=== PATIENT | male | born 1950 | race Caucasian/White ===

== ENCOUNTER 2019-07-17 10:49 | Emergency (ER) | payer OTHER ==
[2019-07-17] MEDS ORDERED: NA CHLORIDE 0.9% 1,000 ML ONE (10:58)
[2019-07-17] MEDS ORDERED: ONDANSETRON 4 MG/2 ML VIAL ONE (10:58)
[2019-07-17 11:16] LABS: Absolute Lymphocytes (CBC) 0.6 K/uL (0.7-4.9); Basophils % 0.1 % (0-1.3); Hematocrit 46.6 % (39.6-49.0); Lymphocytes % 5.7 % (15.3-44.8); RBC Red Blood Cell Count 5.22 M/uL (4.33-5.43)
[2019-07-17 11:28] LABS: Albumin 4.3 g/dL (3.4-5.0); Bilirubin Direct 0.2 mg/dL (0-0.2); Bilirubin Total 0.3 mg/dL (0.2-1.0); Potassium 4.3 mmol/L (3.5-5.1); Protein, Total 8.9 g/dL (6.4-8.2)
--- NOTE | 2019-07-17 11:33 | RAD REPORT ---
EXAM DESCRIPTION: CT - Abdomen Pelvis Wo Contrast - 07/17/2019 11:18 am CLINICAL HISTORY: vomiting/diarrhea Abdominal pain COMPARISON: No comparisons TECHNIQUE: Axial [address] imaging of the abdomen and pelvis was performed without IV contrast. No IV contrast was given because of allergy, abnormal renal function, patient refusal or physician re quest. No oral contrast given. All CT scans are performed using dose optimization technique as appropriate and may include automated exposure control or mA/KV adjustment according to patient size. FINDINGS: No suspicious findings in the lung bases. The liver, spleen and pancreas show no suspicious findings on non-contrast imaging. Gallbladder and b iliary tree are also without suspicious finding. No hydronephrosis or suspicious renal mass. No significant adrenal finding. Isodense renal masses an d pyelonephritis cannot be excluded in the absence of IV contrast. Urinary bladder is contracted. No dilated large or small bowel. Multiple fluid filled large and small bowel loops are present. Sever al proximal small bowel loops are prominent. No bowel wall thickening or mass. No free air, free flu id or inflammatory stranding. No hernia, mass or bulky lymphadenopathy. Disc and bone degenerative changes are present. No acute bone finding. IMPRESSION: Nonspecific ileus or gastroenteritis pattern. No bowel obstruction, free air or surgical ly emergent finding. Full assessment is limited is the absence of IV contrast.
[2019-07-17 12:01] LABS: Blood Morphology Comment NOT SEEN (NOT SEEN); Platelet Estimate ADEQ; Urine White Blood Cell Casts OK
[2019-07-17] MEDS ORDERED: DIPHENOX/ATROP SULF 1 TAB PO ONE (12:03)
--- NOTE | 2019-07-17 13:16 | ER ---
Nurse's Notes [facility] Name: Francisco Acosta Age: 69 yrs Sex: Male : 1950 Arrival Date: 07/17/2019 Time: 10:50 Bed 13 Private MD: ESVIN MCALLISTER Diagnosis: Vomiting;Diarrhea, unspecified;Viral enteritis;Dehydration Presentation: 07/17 10:51 Presenting complaint: EMS states: N/V/D that began this morning. Transition of care: sg patient was not received from another setting of care. Onset of symptoms was July 17, 2019. Risk Assessment: Do you want to hurt yourself or someone else? Patient reports no desire to harm self or others. Initial Sepsis Screen: Does the patient meet any 2 criteria? No. Patient's initial sepsis screen is negative. Does the patient have a suspected source of infection? No. Patient's initial sepsis screen is negative. Care prior to arrival: None. 10:51 Method Of Arrival: EMS: [facility] 10:51 Acuity: GIRMA 3 sg Historical: - Allergies: 11:09 iodine; sg - Home Meds: 11:20 empagliflozin oral oral 1 tab once daily [Active]; gabapentin 300 mg oral cap 1 cap 3 sg times per day [Active]; terazosin hcl [Active]; levothyroxine 25 mcg tab 1 tab once daily [Active]; ferrous gluconate 324 mg (36 mg iron) Oral tab for Iron Deficiency Anemia [Active]; cholecalciferol (vitamin D3) 400 unit oral cap [Active]; sertraline 100 mg oral tab 1 tab once daily [Active]; omeprazole 20 mg Oral TbEC twice a day [Active]; aspirin 81 mg Oral chew 1 tab once daily [Active]; Lisinopril HCTZ HCTZ 25/Lisinopril 20 mg daily [Active]; simvastatin 20 mg Oral tab 1 tab once daily [Active]; doxepin 10 mg Oral cap 2 caps nightly [Active]; Lantus 100 unit/mL Sub-Q soln [Active]; Novolog 100 unit/mL Sub-Q soln [Active]; 11:21 Victoza 2-Mann subcutaneous subcutaneous [Active]; Jardiance oral oral [Active]; sg - PMHx: 11:20 Hypothyroidism; sg 11:23 Diabetes - NIDDM; Anxiety; Anemia; GERD; Depression; sg - Immunization history:: Adult Immunizations up to date. - Family history:: not pertinent. - Social history:: Smoking status: Patient/guardian denies using tobacco. - Ebola Screening: : No symptoms or risks identified at this time. - Hospitalizations: : No recent hospitalization is reported. Screenin:12 Abuse screen: Denies threats or abuse. Denies injuries from another. Nutritional mg2 screening: No deficits noted. Tuberculosis screening: No symptoms or risk factors identified. Fall Risk IV access (20 points). Assessment: 12:10 General: Appears in no apparent distress. comfortable, Behavior is calm, cooperative. mg2 Pain: Denies pain. Neuro: Level of Consciousness is awake, alert, obeys commands, Oriented to person, place, time, situation. Cardiovascular: Capillary refill < 3 seconds Patient's skin is warm and dry. Respiratory: Airway is patent Respiratory effort is even, unlabored, Respiratory pattern is regular, symmetrical. GI: Reports diarrhea, nausea, vomiting. : No signs and/or symptoms were reported regarding the genitourinary system. EENT: No signs and/or symptoms were reported regarding the EENT system. Derm: Skin is intact, is healthy with good turgor, Skin is pink, warm \T\ dry. normal. Musculoskeletal: Circulation, motion, and sensation intact. Capillary refill < 3 seconds. 13:20 Reassessment: Patient appears in no apparent distress at this time. Patient and/or mg2 family updated on plan of care and expected duration. Pain level reassessed. Patient is alert, oriented x 3, equal unlabored respirations, skin warm/dry/pink. 13:58 Reassessment: Patient states feeling better. Patient states symptoms have improved. mg2 Vital Signs: 11:28 BP 98 / 63; Pulse 93; Resp 22; Temp 97.8(O); Pulse Ox 96% on R/A; mh5 12:09 BP 111 / 75; Pulse 89; Resp 18; Pulse Ox 97% on 3 lpm NC; mg2 13:58 BP 118 / 78; Pulse 80; Resp 18; Temp 98; Pulse Ox 100% on R/A; Pain 0/10; mg2 ED Course: 10:50 Patient arrived in ED. rn 10:50 Ralph Meyers MD is Attending Physician. rn 10:51 Melo Schmidt, RN is Primary Nurse. sg 10:52 Triage completed. sg 11:09 Initial lab(s) drawn, by me, sent to lab. Maintain EMS IV. Good blood return noted. sg Site clean \T\ dry. 11:17 CT Abd/Pelvis - Without Contrast In Process Unspecified. EDMS 11:18 CT completed. Patient tolerated procedure well. Patient moved back from CT. bq 11:23 Arm band placed on. sg 11:24 VA, VA is Private Physician. sg 11:28 Patient has correct armband on for positive identification. Placed in gown. Bed in low mh5 position. Call light in reach. Side rails up X2. Adult w/ patient. Warm blanket given. night monitor on. Pulse ox on. NIBP on. 12:00 Report given to Autumn CARL. sg 12:12 No provider procedures requiring assistance completed. mg2 13:41 Jorge Daniel, RN is Primary Nurse. mg2 13:58 IV discontinued, intact, bleeding controlled, No redness/swelling at site. Pressure mg2 dressing applied. Administered Medications: 11:10 Drug: Zofran 4 mg Route: IVP; Site: right antecubital; sg 13:57 Follow up: Response: No adverse reaction; Marked relief of symptoms mg2 11:24 Drug: NS 0.9% 1000 ml Route: IV; Rate: 1000 ml; Site: right antecubital; sg 13:57 Follow up: Response: No adverse reaction; IV Status: Completed infusion; IV Intake: mg2 1000ml 12:06 Drug: LoMOTIL 2 tabs Route: PO; mg2 13:57 Follow up: Response: No adverse reaction; Marked relief of symptoms mg2 Intake: 13:57 IV: 1000ml; Total: 1000ml. mg2 Outcome: 13:15 Discharge ordered by . rn 13:58 Discharged to home via wheelchair. mg2 13:58 Condition: stable 13:58 Discharge instructions given to patient, Instructed on discharge instructions, follow up and referral plans. medication usage, Demonstrated understanding of instructions, follow-up care, medications, Prescriptions given X 1. 13:59 Patient left the ED. mg2 Signatures: Dispatcher [employer] EDMS Melo Schmidt, RN RN Lisette Whyte Ralph Meyers MD MD rn [place] [id number] Jorge Daniel RN RN mg2
--- NOTE | 2019-07-17 13:16 | EDPHYS ---
Physician Documentation [facility] Name: Francisco Acosta Age: 69 yrs Sex: Male : 1950 Arrival Date: 07/17/2019 Time: 10:50 Bed 13 Private MD: ESVIN, DE ED Physician Ralph Meyers HPI: 07/17 10:52 This 69 yrs old Male presents to ER via Unassigned with complaints of rn nausea/vomiting/diarrhea. 10:52 The patient presents to the emergency department with nausea, vomiting, diarrhea. rn Onset: The symptoms/episode began/occurred this morning. Possible causes: unknown. The symptoms are aggravated by nothing. The symptoms are alleviated by nothing. Severity of symptoms: At their worst the symptoms were moderate in the emergency department the symptoms have improved. The patient has not experienced similar symptoms in the past. Reports this AM began with frequent vomiting and diarrhea, feels generalized weakness, no blood in stool or emesis, no fever. Not able to keep gatorade down. Initial BP was 80s systolic, now 110s after 500cc NS by EMS. Still some nausea. Denies abd pain. Historical: - Allergies: 11:09 iodine; sg - Home Meds: 11:20 empagliflozin oral oral 1 tab once daily [Active]; gabapentin 300 mg oral cap 1 cap 3 sg times per day [Active]; terazosin hcl [Active]; levothyroxine 25 mcg tab 1 tab once daily [Active]; ferrous gluconate 324 mg (36 mg iron) Oral tab for Iron Deficiency Anemia [Active]; cholecalciferol (vitamin D3) 400 unit oral cap [Active]; sertraline 100 mg oral tab 1 tab once daily [Active]; omeprazole 20 mg Oral TbEC twice a day [Active]; aspirin 81 mg Oral chew 1 tab once daily [Active]; Lisinopril HCTZ HCTZ 25/Lisinopril 20 mg daily [Active]; simvastatin 20 mg Oral tab 1 tab once daily [Active]; doxepin 10 mg Oral cap 2 caps nightly [Active]; Lantus 100 unit/mL Sub-Q soln [Active]; Novolog 100 unit/mL Sub-Q soln [Active]; 11:21 Victoza 2-Mann subcutaneous subcutaneous [Active]; Jardiance oral oral [Active]; sg - PMHx: 11:20 Hypothyroidism; sg 11:23 Diabetes - NIDDM; Anxiety; Anemia; GERD; Depression; sg - Immunization history:: Adult Immunizations up to date. - Family history:: not pertinent. - Social history:: Smoking status: Patient/guardian denies using tobacco. - Ebola Screening: : No symptoms or risks identified at this time. - Hospitalizations: : No recent hospitalization is reported. ROS: 10:52 Constitutional: Negative for fever, chills, and weight loss, Eyes: Negative for injury, rn pain, redness, and discharge, Neck: Negative for injury, pain, and swelling, Cardiovascular: Negative for chest pain, palpitations, and edema, Respiratory: Negative for shortness of breath, cough, wheezing, and pleuritic chest pain, Abdomen/GI: Negative for constipation MS/Extremity: Negative for injury and deformity, Skin: Negative for injury, rash, and discoloration, Neuro: Negative for headache, numbness, tingling, and seizure. Exam: 10:52 Constitutional: This is a well developed, well nourished patient who is awake, alert, rn and in no acute distress. Covered in emesis on shirt. Head/Face: Normocephalic, atraumatic. ENT: dry MM Cardiovascular: Regular rate and rhythm. No pulse deficits. Respiratory: No increased work of breathing, no retractions or nasal flaring. Speaking full sentences Abdomen/GI: soft, non-tender, non-distended MS/ Extremity: Pulses equal, no cyanosis. Neurovascular intact. Full, normal range of motion. Equal circumference. Neuro: Awake and alert, GCS 15, oriented to person, place, time, and situation. Cranial nerves II-XII grossly intact. Motor strength 5/5 in all extremities. Sensory grossly intact. Vital Signs: 11:28 BP 98 / 63; Pulse 93; Resp 22; Temp 97.8(O); Pulse Ox 96% on R/A; mh5 12:09 BP 111 / 75; Pulse 89; Resp 18; Pulse Ox 97% on 3 lpm NC; mg2 13:58 BP 118 / 78; Pulse 80; Resp 18; Temp 98; Pulse Ox 100% on R/A; Pain 0/10; mg2 MDM: 10:50 Patient medically screened. rn 11:58 ED course: Pt states known chronic kidney insufficiency, has had to modify medication rn because of it, feels much better with improvement of BP, now 114/60, better color, and states feels much better. CT abdomen shows gastroenteritis, which is consistent with symptoms and presentation. Normal wbc. Will dc home with prn zofran with return precautions. . 13:14 Differential diagnosis: appendicitis, diverticulitis, viral gastroenteritis, rn gastroenteritis. Data reviewed: vital signs, nurses notes, lab test result(s), radiologic studies, CT scan, and as a result, I will discharge patient. Counseling: I had a detailed discussion with the patient and/or guardian regarding: the historical points, exam findings, and any diagnostic results supporting the discharge/admit diagnosis, lab results, radiology results, the need for outpatient follow up, to return to the emergency department if symptoms worsen or persist or if there are any questions or concerns that arise at home. Response to treatment: the patient's symptoms have markedly improved after treatment, patient is well hydrated. and as a result, I will discharge patient. 07/17 10:52 Order name: Basic Metabolic Panel; Complete Time: 11:47 rn 07/17 10:52 Order name: CBC with Diff; Complete Time: 12:13 rn 07/17 10:52 Order name: Creatinine for Radiology; Complete Time: :47 rn 07/17 10:52 Order name: Hepatic Function; Complete Time: :47 rn 07/17 10:52 Order name: Lipase; Complete Time: 11:47 rn 07/17 12:01 Order name: CBC Smear Scan; Complete Time: 12:13 EDMS 07/17 10:52 Order name: IV Saline Lock; Complete Time: :54 rn 07/17 10:52 Order name: Labs collected and sent; Complete Time: :54 rn 07/17 10:52 Order name: CT Abd/Pelvis - Without Contrast; Complete Time: 11:47 rn Administered Medications: 11:10 Drug: Zofran 4 mg Route: IVP; Site: right antecubital; sg 13:57 Follow up: Response: No adverse reaction; Marked relief of symptoms mg2 11:24 Drug: NS 0.9% 1000 ml Route: IV; Rate: 1000 ml; Site: right antecubital; sg 13:57 Follow up: Response: No adverse reaction; IV Status: Completed infusion; IV Intake: mg2 1000ml 12:06 Drug: LoMOTIL 2 tabs Route: PO; mg2 13:57 Follow up: Response: No adverse reaction; Marked relief of symptoms mg2 Disposition: 07/17/19 13:15 Discharged to Home. Impression: Vomiting, Diarrhea, unspecified, Viral enteritis, Dehydration. - Condition is Stable. - Discharge Instructions: Dehydration, Adult, Diarrhea, Adult, Nausea and Vomiting, Adult, Viral Gastroenteritis, Adult. - Prescriptions for Zofran ODT 4 mg Oral tablet,disintegrating - place 1 tablet by TRANSLINGUAL route every 8 hours As needed; 20 tablet. - Medication Reconciliation Form, Thank You Letter, Antibiotic Education, Prescription Opioid Use form. - Follow up: Private Physician; When: As needed; Reason: Recheck today's complaints, Re-evaluation by your physician. - Problem is new. - Symptoms have improved. Signatures: Dispatcher [employer] EDMelo German RN RN sg Ralph Meyers MD MD rn Gardose, Michele, RN RN mg2 Corrections: (The following items were deleted from the chart) 13:59 13:15 07/17/2019 13:15 Discharged to Home. Impression: Vomiting; Diarrhea, unspecified; mg2 Viral enteritis; Dehydration. Condition is Stable. Forms are Medication Reconciliation Form, Thank You Letter, Antibiotic Education, Prescription Opioid Use. Follow up: Private Physician; When: As needed; Reason: Recheck today's complaints, Re-evaluation by your physician. Problem is new. Symptoms have improved. rn
[2019-07-17 14:22] VITALS: BP 118/78; TEMP 98; O2SAT 100
== END 2019-07-17 13:59 | disposition home or self-care (01) ==
LOC: ER 10:49
DX: A08.4 Viral intestinal infection, unspecified (principal); E86.0 Dehydration; E03.9 Hypothyroidism, unspecified; E11.9 Type 2 diabetes mellitus without complications; F41.9 Anxiety disorder, unspecified; F32.9 Major depressive disorder, single episode, unspecified; Z79.82 Long term (current) use of aspirin; Z79.4 Long term (current) use of insulin; Z91.048 Other nonmedicinal substance allergy status
CPT/HCPCS: 96361; 85025; 80048; 36415; 80076; 83690; 74176; 96374; 99285; J7030; J2405

== ENCOUNTER 2021-07-25 11:13 | Emergency (ER) | payer OTHER ==
--- OUTSIDE RECORDS SUMMARY | 2021-07-25 11:16 | XMS REPORT | Continuity of Care Document ---
:1950 Author Organization [facility] t Address [address] [place] [address] [address] [place] [address] Care Team Providers Name Role Phone ANGELA Attending Clinician Unavailable Problems This patient has no known problems. Allergies, Adverse Reactions, Alerts This patient has no known allergies or adverse reactions. Medications This patient has no known medications. Procedures This patient has no known procedures. Encounters Start End Encounter Admission Attending Care Care Encounter Source Date/Time Date/Time Type Type Clinicians Facility Department ID 2021-05-03 2021-05-03 Outpatient [facility] [id number] [address] [place] 00:00:00 00:00:[address] 2020-09-01 2020-09-01 Outpatient ANGELA, [facility] [id number] [address] [place] 00:00:00 00:00:00 AMANUEL [address] 2020-08-11 2020-08-11 Outpatient [facility] [id number] [address] [place] 00:00:00 00:00:[address] Results This patient has no known results.
--- NOTE | 2021-07-25 14:34 | RAD REPORT ---
EXAM DESCRIPTION: CT - Abdomen Pelvis Wo Contrast - 07/25/2021 2:03 pm CLINICAL HISTORY: Abdominal pain. Abd pain;Constipation COMPARISON: Abdomen Pelvis Wo Contrast dated 07/17/2019 TECHNIQUE: CT imaging of the abdomen and pelvis was performed without contrast. Solid organ, bowel a nd vascular assessment is limited due to lack of IV and oral contrast. All CT scans are performed using dose optimization technique as appropriate and may include automated exposure control or mA/KV adjustment according to patient size. FINDINGS: The lower lung pacheco are clear. The liver, spleen, pancreas, adrenal glands and kidneys are within normal limits for a limited non-co ntrast examination. No bowel obstruction, free air, free fluid or abscess. Significant fecal retention is seen throughout the colon. The appendix is normal. Moderate lumbosacral degenerative changes. IMPRESSION: Moderate fecal retention throughout the colon. A limited non-contrast examination was performed as detailed.
--- NOTE | 2021-07-25 15:09 | ER ---
Nurse's Notes [facility] Name: Francisco Acosta Age: 71 yrs Sex: Male : 1950 Arrival Date: 07/25/2021 Time: 11:18 Bed 12 Private MD: Diagnosis: Abdominal pain, Generalized;Constipation;Slow transit constipation Presentation: 07/25 11:22 Chief complaint: Patient states: "I have been constipated for about 10 day or so. a jd3 little more came out today, but it is still very uncomfortable. I have tried all the medicines and very little has helped. my family has all had colon cancer, so I am just concerned it might be related to something like that or if it is just the food I eat or what." Spouse and/or significant other states: "we can't keep doing this every 10 days the constipation and pain. the doctors at the [facility] have been very little help as well.". Coronavirus screen: At this time, the client does not indicate any symptoms associated with coronavirus-19. Ebola Screen: Patient negative for fever greater than or equal to 101.5 degrees Fahrenheit, and additional compatible Ebola Virus Disease symptoms. Initial Sepsis Screen: Does the patient meet any 2 criteria? No. Patient's initial sepsis screen is negative. Does the patient have a suspected source of infection? No. Patient's initial sepsis screen is negative. Risk Assessment: Do you want to hurt yourself or someone else? Patient reports no desire to harm self or others. Onset of symptoms was July 25, 2021. 11:22 Acuity: GIRMA 3 jd3 11:22 Method Of Arrival: Ambulatory jd3 Historical: - Allergies: 11:24 Iodine; jd3 - PMHx: 11:24 Depression; Anemia; Hypothyroidism; Diabetes - NIDDM; Anxiety; GERD; jd3 - PSHx: 11:24 JP wrist; jd3 - Immunization history:: Adult Immunizations up to date. - Social history:: Smoking status: Patient denies any tobacco usage or history of. Screenin:45 Abuse screen: Denies threats or abuse. Nutritional screening: No deficits noted. jd3 Tuberculosis screening: No symptoms or risk factors identified. Fall Risk Ambulatory Aid- None/Bed Rest/Nurse Assist (0 pts). Gait- Normal/Bed Rest/Wheelchair (0 pts) Mental Status- Oriented to own ability (0 pts). Total Layne Fall Scale indicates No Risk (0-24 pts). Assessment: 11:44 General: Appears in no apparent distress. comfortable, Behavior is calm, cooperative, jd3 appropriate for age. Pain: Complains of pain in abdomen Quality of pain is described as pressure. Neuro: Level of Consciousness is awake, alert, obeys commands, Oriented to person, place, time, situation. Cardiovascular: Denies chest pain, Capillary refill < 3 seconds Patient's skin is warm and dry. Respiratory: Airway is patent Respiratory effort is even, unlabored, Respiratory pattern is regular, symmetrical, Denies cough, shortness of breath. GI: Abdomen is round non-distended, Abd is soft and non tender X 4 quads. Reports constipation. : No signs and/or symptoms were reported regarding the genitourinary system. EENT: No signs and/or symptoms were reported regarding the EENT system. Derm: Skin is intact, Skin is dry, Skin is normal, Skin temperature is warm. Musculoskeletal: Circulation, motion, and sensation intact. Range of motion: intact in all extremities. 13:30 Reassessment: Patient appears in no apparent distress at this time. Patient and/or iw family updated on plan of care and expected duration. Pain level reassessed. Patient is alert, oriented x 3, equal unlabored respirations, skin warm/dry/pink. Vital Signs: 11:25 BP 159 / 93; Pulse 110; Resp 17 S; Temp 97.5(TE); Pulse Ox 94% on R/A; Weight 97.98 kg jd3 (R); Height 5 ft. 10 in. (177.80 cm) (R); Pain 0/10; 11:25 Body Mass Index 30.99 (97.98 kg, 177.80 cm) jd3 ED Course: 11:18 Patient arrived in ED. mr 11:24 Triage completed. jd3 11:27 Arm band placed on. jd3 11:45 Patient has correct armband on for positive identification. Bed in low position. Call jd3 light in reach. Side rails up X 1. Adult w/ patient. Pulse ox on. NIBP on. 11:48 Alexia Power RN is Primary Nurse. iw 11:49 Sid Ruiz MD is Attending Physician. kdr 13:50 Inserted saline lock: 20 gauge in right antecubital area, using aseptic technique. iw 14:04 Abdomen In Process Unspecified. EDMS Administered Medications: No medications were administered Outcome: 15:08 Discharge ordered by . kdr 15:27 Discharged to home ambulatory. iw 15:27 Condition: good 15:28 Patient left the ED. iw Signatures: Dispatcher [employer] EDMS Sid Ruiz MD MD kdr Anthony, Kenya orozco Alexia Power RN RN iw Lazaro Bryant RN RN jd3 Corrections: (The following items were deleted from the chart) 11:28 11:22 Chief complaint: Patient states: "I have been constipated for about 10 day or so. jd3 a little more came out today, but it is still very uncomfortable. I have tried all the medicines and very little has helped." jd3 11:44 11:22 Chief complaint: Patient states: "I have been constipated for about 10 day or so. jd3 a little more came out today, but it is still very uncomfortable. I have tried all the medicines and very little has helped. my family has all had colon cancer, so I am just concerned it might be related to something like that or if it is just the food I eat or what." jd3
--- NOTE | 2021-07-25 15:09 | EDPHYS ---
Physician Documentation [facility] Name: Francisco Acosta Age: 71 yrs Sex: Male : 1950 Arrival Date: 07/25/2021 Time: 11:18 Bed 12 Private MD: ED Physician Sid Ruiz HPI: 07/25 17:04 This 71 yrs old Male presents to ER via Ambulatory with complaints of Constipation. kdr 17:04 The patient presents with abdominal pain abdominal distention that is diffuse. Onset: kdr The symptoms/episode began/occurred gradually, 10 day(s) ago. The symptoms do not radiate. Associated signs and symptoms: Pertinent positives: diarrhea, nausea, Pertinent negatives: dysuria, fever. The symptoms are described as achy, crampy, dull, intermittent, vague. Modifying factors: The symptoms are alleviated by nothing, the symptoms are aggravated by Attempting to have a stool aggravates his discomfort but he gets urges from time to time and will sit on the stool for extended period without significant result. Severity of pain: At its worst the pain was moderate in the emergency department the pain is unchanged. The patient has not experienced similar symptoms in the past. The patient has not recently seen a physician. Patient states that he has had hard stool and been constipated for the past 10 days or so. He does pass some very watery stool from time to time but no significant bowel movement in the last 10 days. 17:04 The patient did have a large solid portion of stool expelled just prior to arrival. kdr That seemed to have relieved most of his symptoms. Patient remained concerned that some pathology had been the nidus for this experience. Therefore a CT scan was done to confirm no other masses or lesions that may have been involved.. Historical: - Allergies: 11:24 Iodine; jd3 - PMHx: 11:24 Depression; Anemia; Hypothyroidism; Diabetes - NIDDM; Anxiety; GERD; jd3 - PSHx: 11:24 JP wrist; jd3 - Immunization history:: Adult Immunizations up to date. - Social history:: Smoking status: Patient denies any tobacco usage or history of. ROS: 17:04 Constitutional: Negative for fever, chills, and weight loss, Eyes: Negative for injury, kdr pain, redness, and discharge, Neck: Negative for injury, pain, and swelling, Cardiovascular: Negative for chest pain, palpitations, and edema, Respiratory: Negative for shortness of breath, cough, wheezing, and pleuritic chest pain, Back: Negative for injury and pain, MS/Extremity: Negative for injury and deformity, Skin: Negative for injury, rash, and discoloration, Neuro: Negative for headache, weakness, numbness, tingling, and seizure activity. Psych: Negative for depression, anxiety, suicide ideation, homicidal ideation, and hallucinations, Allergy/Immunology: Negative for hives, rash, and allergies, Endocrine: Negative for neck swelling, polydipsia, polyuria, polyphagia, and marked weight changes, Hematologic/Lymphatic: Negative for swollen nodes, abnormal bleeding, and unusual bruising. 17:04 Abdomen/GI: Positive for abdominal pain, constipation, Occasional watery stool. Exam: 17:04 Constitutional: This is a well developed, well nourished patient who is awake, alert, kdr and in no acute distress. Head/Face: Normocephalic, atraumatic. Eyes: Pupils equal round and reactive to light, extra-ocular motions intact. Lids and lashes normal. Conjunctiva and sclera are non-icteric and not injected. Cornea within normal limits. Periorbital areas with no swelling, redness, or edema. Neck: Trachea midline, no thyromegaly or masses palpated, and no cervical lymphadenopathy. Supple, full range of motion without nuchal rigidity, or vertebral point tenderness. No Meningismus. Chest/axilla: Normal chest wall appearance and motion. Nontender with no deformity. No lesions are appreciated. Cardiovascular: Regular rate and rhythm with a normal S1 and S2. No gallops, murmurs, or rubs. Normal PMI, no JVD. No pulse deficits. Respiratory: Lungs have equal breath sounds bilaterally, clear to auscultation and percussion. No rales, rhonchi or wheezes noted. No increased work of breathing, no retractions or nasal flaring. Abdomen/GI: Soft, non-tender, with normal bowel sounds. No distension or tympany. No guarding or rebound. No evidence of tenderness throughout. Back: No spinal tenderness. No costovertebral tenderness. Full range of motion. Skin: Warm, dry with normal turgor. Normal color with no rashes, no lesions, and no evidence of cellulitis. MS/ Extremity: Pulses equal, no cyanosis. Neurovascular intact. Full, normal range of motion. Neuro: Awake and alert, GCS 15, oriented to person, place, time, and situation. Cranial nerves II-XII grossly intact. Motor strength 5/5 in all extremities. Sensory grossly intact. Cerebellar exam normal. Normal gait. Psych: Awake, alert, with orientation to person, place and time. Behavior, mood, and affect are within normal limits. Vital Signs: 11:25 BP 159 / 93; Pulse 110; Resp 17 S; Temp 97.5(TE); Pulse Ox 94% on R/A; Weight 97.98 kg jd3 (R); Height 5 ft. 10 in. (177.80 cm) (R); Pain 0/10; 11:25 Body Mass Index 30.99 (97.98 kg, 177.80 cm) jd3 MDM: 15:08 Patient medically screened. kdr 17:04 Data reviewed: vital signs, nurses notes, radiologic studies. Counseling: I had a kdr detailed discussion with the patient and/or guardian regarding: the historical points, exam findings, and any diagnostic results supporting the discharge/admit diagnosis, lab results, radiology results, the need for outpatient follow up. ED course: The intermittent watery stools likely inspissated stool surrounded by liquefied stool that was seeping around the inspissated stool. 07/25 13:17 Order name: Creatinine, Serum kdr 07/25 14:16 Order name: CREATININE WHOLE BLOOD; Complete Time: 14:34 EDMS 07/25 14:03 Order name: Abdomen ; Complete Time: 14:38 EDMS Administered Medications: No medications were administered Disposition Summary: 07/25/21 15:08 Discharge Ordered Location: Home kdr Problem: new kdr Symptoms: have improved kdr Condition: Stable kdr Diagnosis - Abdominal pain, Generalized kdr - Constipation kdr - Slow transit constipation kdr Followup: kdr - With: Private Physician - When: 2 - 3 days - Reason: If symptoms return, Further diagnostic work-up, Recheck today's complaints, Continuance of care, Re-evaluation by your physician Discharge Instructions: - Discharge Summary Sheet kdr - Constipation, Adult kdr - Abdominal Pain, Adult, [id number] kdr Forms: - Medication Reconciliation Form kdr - Thank You Letter kdr - Antibiotic Education kdr - Prescription Opioid Use kdr Prescriptions: - Miralax 17 gram Oral powder in packet - take 1 packet by ORAL route once daily; 2 box; Refills: 0, Product Selection kdr Permitted Signatures: Dispatcher [employer] Sid Jordan MD MD kdr Davies, Jonathon RN RN jd3 Corrections: (The following items were deleted from the chart) 14:03 13:17 Abdomen Pelvis W [id number] ordered. EDMS EDMS
[2021-07-25 15:35] VITALS: BP 159/93; TEMP 97.5; O2SAT 94
== END 2021-07-25 15:28 | disposition home or self-care (01) ==
LOC: ER 11:13
DX: K59.01 Slow transit constipation (principal); Z91.048 Other nonmedicinal substance allergy status
CPT/HCPCS: 74176; 82565; 99283

== ENCOUNTER 2022-07-08 10:05 | Emergency (ER) | payer OTHER ==
--- OUTSIDE RECORDS SUMMARY | 2022-07-08 10:08 | XMS REPORT | Continuity of Care Document ---
:1950 Author Organization [facility] t Address [address] [place] [address] Care Team Providers Name Role Phone Asked, No Pcp Primary Care Physician Unavailable AMANUEL MILLER Attending Clinician Unavailable Problems Condition Condition Condition Status Onset Resolution Last Treating Co mments Source Name Details Category Date Date Treatment Clinician Date No known No known Disease Metho di active active st problems problems Hospit [facility] l Allergies, Adverse Reactions, Alerts This patient has no known allergies or adverse reactions. Social History Social Habit Start Date Stop Date Quantity Comments Source Sex Assigned At [birth year] [facility] 00:00:00 00:00:00 Smoking Status Start Date Stop Date Source Tobacco smoking consumption unknown [facility] Medications Ordered Filled Start Stop Current Ordering Indication Dosage Frequency Signature Comments Components Source Medication Medication Date Date Medication? Clinician (SIG) Name Name No known No No known Metho di medications 2-[address] 11:14[facility] Immunizations Ordered Immunization Filled Immunization Date Status Commen ts Source Name Name PFIZER COVID-19 MRNA 2021-05-03 Completed [facility]00 Hospital PFIZER COVID-19 MRNA 2020-09-01 Completed [facility] VACC[facility] 00:00:00 Hospital PFIZER COVID-19 MRNA 2020-08-11 Completed [facility] VACCINATION 00:00:00 Hospital Procedures This patient has no known procedures. Plan of Care Planned Activity Planned Date Details Comments Source Future Scheduled 2022-06-23 65+ [facility] [facility] 17:10:56 VACCINE (1 - PCV) [code = 65+ PNEUMOCOCCAL VACCINE (1 - PCV)] Future Scheduled 2022-06-23 COVID-19 VACCINE (3 - [facility] 17:10:56 Booster for Pfizer series) [code = COVID-19 VACCINE (3 - Booster for Pfizer series)] Future Scheduled 2022-06-23 INFLUENZA VACCINE Method [facility] Test 17:10:56 [code = INFLUENZA VACCINE] Future Scheduled 2022-06-23 COLONOSCOPY SCREENING [facility] Test 17:10:56 [code = COLONOSCOPY SCREENING] Future Scheduled 2022-06-23 SHINGLES VACCINES (1 Met [facility] Test 17:10:56 of 2) [code = SHINGLES VACCINES (1 of 2)] Future Scheduled 2022-06-18 SHINGLES VACCINES (1 Met [facility] Test 01:40:19 of 2) [code = SHINGLES VACCINES (1 of 2)] Future Scheduled 2022-06-18 65+ [facility] 01:[facility] VACCINE (1 - PCV) [code = 65+ PNEUMOCOCCAL VACCINE (1 - PCV)] Future Scheduled 2022-06-18 COVID-19 VACCINE (4 - [facility] Test 01:40:19 Booster for Pfizer series) [code = COVID-19 VACCINE (4 - Booster for Pfizer series)] Future Scheduled 2022-06-18 INFLUENZA VACCINE Method [facility] Test 01:40:19 [code = INFLUENZA VACCINE] Future Scheduled 2022-06-18 COLONOSCOPY SCREENING [facility] Test 01:40:19 [code = COLONOSCOPY SCREENING] Encounters Start End Encounter Admission Attending Care Care Encounter Source Date/Time Date/Time Type Type Clinicians Facility Department ID 2021-05-03 2021-05-03 Outpatient [facility] [id number] 00:00:00 00:00:[address] 2020-09-01 2020-09-01 Outpatient ANGELA, [facility] [id number] 00:00:00 00:00:00 MARKOSER [address] [facility] 2020-08-11 2020-08-11 Outpatient [facility] [id number] [place] 00:00:00 00:00:[address] Results This patient has no known results.
[2022-07-08 11:11] LABS: Absolute Lymphocytes (CBC) 1.3 K/uL (0.7-4.9); Hematocrit 41.1 % (39.6-49.0); Lymphocytes % 19.6 % (15.3-44.8); MCV 93.3 fL (80-100); MPV 8.5 fL (7.6-11.3); RBC Red Blood Cell Count 4.41 M/uL (4.33-5.43)
--- NOTE | 2022-07-08 11:17 | RAD REPORT ---
EXAM DESCRIPTION: RAD - Chest Single View - 07/08/2022 10:59 am CLINICAL HISTORY: sob, covid COMPARISON: None TECHNIQUE: AP portable chest image was obtained 07/08/2022 10:59 am . FINDINGS: Lung volumes are very low. This limits the examination. Large body habitus further limits the examination. No focal consolidations seen. Interstitial markings are prominent some or all due to low lung volumes . Interstitial edema and infiltrate could be masked. Minimal patchy alveolar infiltrates could be mas ked as well. Heart and vasculature are normal. No measurable pleural effusion and no pneumothorax. No acute bony abnormality seen. No acute aortic findings suspected. IMPRESSION: Limited portable study without focal mass or consolidation. Prominent baseline interstitial pattern could mask interstitial edema or infiltrate.
[2022-07-08 11:31] LABS: Potassium 3.8 mmol/L (3.5-5.1)
[2022-07-08] MEDS ORDERED: LEVALBUTEROL 1.25 MG/3 ML NEB ONE (12:34)
--- NOTE | 2022-07-08 12:45 | EDPHYS ---
Physician Documentation [facility] Name: Francisco Acosta Age: 72 yrs Sex: Male : 1950 Arrival Date: 07/08/2022 Time: 10:08 Bed Treatment Private MD: ED Physician Lilly Pond Historical: - Allergies: 07/08 10:31 Iodine; ss - PMHx: 10:31 Anemia; Depression; Diabetes - NIDDM; Hypothyroidism; GERD; Anxiety; ss - PSHx: 10:31 JP wrist; ss - Immunization history:: Client reports receiving the 2nd dose of the Covid vaccine. - Social history:: Smoking status: Patient denies any tobacco usage or history of. Vital Signs: 10:28 BP 126 / 88; Pulse 103; Resp 17; Temp 98.4(TE); Pulse Ox 100% on R/A; Weight 98.88 kg; ss Height 5 ft. 10 in. (177.80 cm); Pain 0/10; 10:28 Body Mass Index 31.28 (98.88 kg, 177.80 cm) ss MDM: 10:34 Patient medically screened. [facility] 12:45 Data reviewed: vital signs, nurses notes. Counseling: I had a detailed discussion with [facility] the patient and/or guardian regarding: the historical points, exam findings, and any diagnostic results supporting the discharge/admit diagnosis, lab results, radiology results, the need for outpatient follow up, to return to the emergency department if symptoms worsen or persist or if there are any questions or concerns that arise at home. 07/08 10:34 Order name: Basic Metabolic Panel; Complete Time: 11:35 [facility] 07/08 10:34 Order name: CBC with Diff; Complete Time: 11:14 [facility] 07/08 10:34 Order name: Troponin HS; Complete Time: 11:35 [facility] 07/08 10:34 Order name: XRAY Chest (1 view); Complete Time: 11:18 [facility] 07/08 10:34 Order name: EKG; Complete Time: 10:34 [facility] 07/08 10:34 Order name: EKG - Nurse/Tech; Complete Time: 13:13 [facility] 07/08 10:34 Order name: IV Saline Lock; Complete Time: 12:28 [facility] 07/08 10:34 Order name: Labs collected and sent; Complete Time: 12:28 [facility] 07/08 10:34 Order name: O2 Per Protocol; Complete Time: 12:29 [facility] 07/08 10:34 Order name: O2 Sat Monitoring; Complete Time: 12:29 [facility] Administered Medications: 12:36 Drug: Xopenex (levalbuterol) (3) 1.25 mg Route: Inhalation; ap3 13:13 Follow up: Response: No adverse reaction ap3 Disposition: 18:41 STAFF ATTESTATION STATEMENT: I was immediately available onsite in the emergency sd2 department for consultation in the care of this patient. I did not see or examine this patient. Lilly Pond MD. Disposition Summary: 07/08/22 12:45 Discharge Ordered Location: Home [facility] Condition: Stable [facility] Diagnosis - Coronavirus infection, unspecified [facility] Followup: [facility] - With: Private Physician - When: 2 - 3 days - Reason: Recheck today's complaints, Continuance of care, Re-evaluation by your physician Discharge Instructions: - Discharge Summary Sheet [facility] - COVID-19 [facility] Forms: - Medication Reconciliation Form [facility] - Thank You Letter [facility] - Antibiotic Education [facility] - Prescription Opioid Use [facility] Prescriptions: - Flovent HFA 110 mcg/actuation Inhalation HFA aerosol inhaler - inhale 2 puff by INHALATION route 2 times per day; 1 Pump; Refills: 0, Product [facility] Selection Permitted - albuterol sulfate 90 mcg/actuation Inhalation HFA aerosol inhaler - inhale 2 puff by INHALATION route every 4 hours; 1 Pump; Refills: 0, Product [facility] Selection Permitted - Zithromax Z-Mann 250 mg Oral Tablet - take 1 tablet by ORAL route as directed for 5 days Day 1 - take two (2) tablets [facility] one time. Day 2, 3, 4 , 5 take one (1) tablet once daily.; 6 tablet; Refills: 0, Product Selection Permitted Signatures: Dispatcher [employer] EDSuhail Degroot PA PA jmm Smirch, Shelby, RN RN ss Prokisch, Amanda, RN RN ap3 Lilly Pond MD MD pa2
--- NOTE | 2022-07-08 12:45 | ER ---
Nurse's Notes [facility] Name: Francisco Acosta Age: 72 yrs Sex: Male : 1950 Arrival Date: 07/08/2022 Time: 10:08 Bed Treatment Private MD: Diagnosis: Coronavirus infection, unspecified Presentation: 07/08 10:28 Chief complaint: Patient states: difficulty breathing that began 3 days ago. Pt reports ss he had an exposure to covid and tested positive yesterday with a home test. Coronavirus screen: Client denies travel out of the [place] in the last 14 days. Ebola Screen: Patient denies exposure to infectious person. Patient denies travel to an Ebola-affected area in the 21 days before illness onset. Initial Sepsis Screen: Does the patient meet any 2 criteria? No. Patient's initial sepsis screen is negative. Does the patient have a suspected source of infection? No. Patient's initial sepsis screen is negative. Risk Assessment: Do you want to hurt yourself or someone else? Patient reports no desire to harm self or others. Onset of symptoms was July 05, 2022. 10:28 Method Of Arrival: Ambulatory ss 10:28 Acuity: GIRMA 3 ss Triage Assessment: 13:14 General: Appears in no apparent distress. Behavior is calm, cooperative. Respiratory: ap3 Reports cough that is Onset: The symptoms/episode began/occurred gradually, the patient has mild shortness of breath. Historical: - Allergies: 10:31 Iodine; ss - PMHx: 10:31 Anemia; Depression; Diabetes - NIDDM; Hypothyroidism; GERD; Anxiety; ss - PSHx: 10:31 JP wrist; ss - Immunization history:: Client reports receiving the 2nd dose of the Covid vaccine. - Social history:: Smoking status: Patient denies any tobacco usage or history of. Screenin:13 Abuse screen: Denies threats or abuse. Nutritional screening: No deficits noted. ap3 Tuberculosis screening: No symptoms or risk factors identified. 13:14 [facility] ED Fall Risk Assessment (Adult) History of falling in the last 3 months, ap3 including since admission No falls in past 3 months (0 pts). Assessment: 13:13 Pain: Denies pain. Cardiovascular: Patient's skin is warm and dry. Rhythm is regular. ap3 Respiratory: Airway is patent Respiratory effort is even, unlabored, Breath sounds are clear. Vital Signs: 10:28 BP 126 / 88; Pulse 103; Resp 17; Temp 98.4(TE); Pulse Ox 100% on R/A; Weight 98.88 kg; Height 5 ft. 10 in. (177.80 cm); Pain 0/10; 10:28 Body Mass Index 31.28 (98.88 kg, 177.80 cm) ED Course: 10:08 Patient arrived in ED. mr 10:09 Suhail Amaya PA is PHCP. m 10:09 Lilly Pond MD is Attending Physician. m 10:31 Triage completed. ss 10:31 Arm band placed on right wrist. ss 11:00 XRAY Chest (1 view) In Process Unspecified. EDMS 12:28 Jeannette Engle, SIDDHARTHA is Primary Nurse. ap3 13:14 Patient has correct armband on for positive identification. ap3 13:14 No provider procedures requiring assistance completed. IV discontinued, intact, ap3 bleeding controlled, No redness/swelling at site. Pressure dressing applied. Administered Medications: 12:36 Drug: Xopenex (levalbuterol) (3) 1.25 mg Route: Inhalation; ap3 13:13 Follow up: Response: No adverse reaction ap3 Medication: 13:14 VIS not applicable for this client. ap3 Outcome: 12:45 Discharge ordered by . m 13:14 Discharged to home ambulatory, with family. ap3 13:14 Condition: good 13:14 Discharge instructions given to patient, family, Instructed on discharge instructions, follow up and referral plans. Demonstrated understanding of instructions, follow-up care, medications, Prescriptions given X 3. 13:15 Patient left the ED. ap3 Signatures: Dispatcher [employer] EDMS Suhail Amaya PA PA jmm RiveraKenya Shelby, SIDDHARTHA CARL Jeannette Engle RN RN ap3
[2022-07-08 13:23] VITALS: BP 126/88; TEMP 98.4; O2SAT 100
--- NOTE | 2022-07-09 08:33 | EKG ---
Test Date: 2022-07-08 Test Time: 11:12:08 Labor Contract Analyst: RON MEASUREMENT RESULTS: Intervals: Rate: 94 NH: 180 QRSD: 78 QT: 354 QTc: 442 [place]: P: 40 NH: 180 QRS: -46 T: 0 INTERPRETIVE STATEMENTS: Sinus rhythm with premature atrial complexes Pulmonary disease pattern Left anterior fascicular block Abnormal ECG Compared to ECG 11/22/1998 10:33:00 Atrial premature complex(es) now present Left anterior fascicular block now present Electronically Signed On 07-09-22 08:31:17 CLIENT RETENTION SPECIALIST by Dre Sanders
== END 2022-07-08 13:15 | disposition home or self-care (01) ==
LOC: ER 10:05
DX: U07.1 COVID-19 (principal); Z91.048 Other nonmedicinal substance allergy status
CPT/HCPCS: 93005; 85025; 80048; 36415; 84484; 71045; 99284; J7614